=== PATIENT | male | born 1960 | race Caucasian/White ===

== ENCOUNTER 2019-11-06 10:43 | Day surgery (SDC) | payer BC ==
[~2019-11-06] VITALS: Ht 177.8 cm; Wt 76.6 kg
[~2019-11-06 10:43] MED LIST: Cipro500 MG PO; Flagyl500 MG PO; Flonase 0.05% N16 GM; HYDR1TAB94 PO; LORA1 PO; LOSARTAN-HCTZ1 EACH PO; ONDA4ODT MM; PERCOCET 10-321 EACH PO; Percocet 5-3251 EACH PO; Promethazine12.5 M1 PO; TRAZ100 PO
== END 2019-11-06 13:25 | disposition home or self-care (01) ==
LOC: ORSCSDS 10:43
PROVIDERS: Student in an Organized Health Care Education/Training Program
PROC: 0DBP8ZX Excision of Rectum, Via Natural or Artificial Opening Endoscopic, Diagnostic (ICD-10-PCS; principal; 2019-11-06 12:30)
PROC: 0DBN8ZX Excision of Sigmoid Colon, Via Natural or Artificial Opening Endoscopic, Diagnostic (ICD-10-PCS; principal; 2019-11-06 12:30)
PROC: 0DBK8ZX Excision of Ascending Colon, Via Natural or Artificial Opening Endoscopic, Diagnostic (ICD-10-PCS; principal; 2019-11-06 12:30)
DX: Z87.19 Personal history of other diseases of the digestive system (principal); R10.9 Unspecified abdominal pain; D12.4 Benign neoplasm of descending colon; D12.2 Benign neoplasm of ascending colon; D12.5 Benign neoplasm of sigmoid colon; K62.1 Rectal polyp; K64.8 Other hemorrhoids; K57.30 Diverticulosis of large intestine without perforation or abscess without bleeding; I10 Essential (primary) hypertension; Z79.899 Other long term (current) drug therapy; F17.210 Nicotine dependence, cigarettes, uncomplicated
CPT/HCPCS: 88305; J2704; J7120

== ENCOUNTER 2025-02-19 15:44 | Inpatient (IN) | payer SELFPAY ==
[~2025-02-19] VITALS: Ht 177.8 cm; Wt 67.7 kg
[2025-02-19] MEDS ORDERED: Ketorolac Tromethamine 30mg Vial IV ONE (16:10)
[2025-02-19] MEDS ORDERED: Ondansetron HCl 2 MG / ML 2ML Vial IV ONE (16:10)
[2025-02-19] MEDS ORDERED: NS 1,000 ML IV SCH ×2 (16:10→19:15)
[2025-02-19 16:31] LABS: Hematocrit 47.2 % (37.0-53.0); Hemoglobin 17.3 g/dL (13.5-17.5); Mean Corpuscular HGB 30.2 pg (26.0-34.0); Mean Corpuscular HGB Conc 36.7 g/dL (31.5-36.5); Mean Corpuscular Volume 82 fL (80-100); Mean Platelet Volume 10.9 fL (9.1-12.4); Platelet Count 118 K/mm3 (150-400); RDW Coefficient Variation 12.5 % (11.7-14.2); RDW Standard Deviation 37.5 fL (35.1-46.3); Red Blood Cell Count 5.73 M/mm3 (4.30-5.90); White Blood Cell Count 9.75 K/mm3 (4.00-11.30)
[2025-02-19 16:52] LABS: BAND PERCENT MAN 6 % (0-8); BASOPHILS PERCENT MAN 0 % (0-2); EOSINOPHILS PERCENT MAN 0 % (0-6); LYMPHOCYTES ABSOLUTE MAN 0.29 K/mm3 (0.84-5.20); LYMPHOCYTES PERCENT MAN 3 % (21-46); MONOCYTES ABSOLUTE MAN 0.78 K/mm3 (0.16-1.47); MONOCYTES PERCENT MAN 8 % (4-13); NEUTROPHILS ABSOLUTE MAN 8.67 K/mm3 (1.96-9.15); SEG NEUTROPHILS PERCENT MAN 83 % (41-73); TOTAL CELLS COUNTED 100
[2025-02-19 17:05] LABS: Albumin, Blood 3.8 g/dL (3.4-5.0); Bilirubin, Total 1.7 mg/dL (0.1-1.0); Calcium, Blood 8.9 mg/dL (8.5-10.1); Magnesium, Blood 1.9 mg/dL (1.6-2.4); Total Protein, Blood 7.8 g/dL (6.4-8.2)
[2025-02-19 17:06] LABS: Influenza A, PCR NEGATIVE (NEGATIVE); Influenza B, PCR NEGATIVE (NEGATIVE); Resp Syncytial Virus, PCR NEGATIVE (NEGATIVE); SARS-Cov-2 (COVID-19) PCR, MMC NEGATIVE (NEGATIVE)
[2025-02-19 17:32] LABS: Source, Urine Clean Catch
[2025-02-19 17:40] LABS: Appearance, Urine Cloudy (Clear); Bilirubin, Urine Neg (Neg); Blood, Urine 5+ (Neg); Color, Urine Yellow (P-Yellow); Glucose Qualitative, Urine Neg (Neg); Ketones, Urine 3+ (Neg); Leukocyte Esterase, Urine 3+ (Neg); Nitrite, Urine Pos (Neg); Protein, Urine 3+ (Neg); Specific Gravity, Urine 1.015 (1.003-1.022); Urobilinogen, Urine NORM (Normal)
[2025-02-19 17:47] LABS: Bacteria Many /hpf; Hyaline Casts 0-2 /lpf (0-2); Squamous Epithelial Cells Not Seen /hpf (Few); White Blood Cells, Urine 50-100 /hpf (0-5)
[2025-02-19] MEDS ORDERED: CefTRIAXone Sodium 1,000 MG in NS 50 ML IV ONE (19:15)
[2025-02-19] MEDS ORDERED: Morphine Sulfate 4 MG/1 ML Injection IV ONE (19:20)
[2025-02-19] MEDS ORDERED: Potassium Chloride 20 MEQ/15 ML UDC PO ONE (19:30)
[2025-02-19] MEDS ORDERED: Potassium Chloride 20 MEQ TabCR PO ONE (19:30)
[2025-02-19] MEDS ORDERED: Acetaminophen 500 MG Tab PO PRN ×2 (19:55→20:40)
[2025-02-19] MEDS ORDERED: FLU VACC TS2024-25(6MOS UP)/PF 45 MCG/0.5 ML SYRINGE IM ONE (20:00)
[2025-02-19] MEDS ORDERED: Ondansetron HCl 2 MG / ML 2ML Vial IV PRN (20:00)
[2025-02-19] MEDS ORDERED: OxyCODONE 5 mg/Acetamin 325 mg TABLET PO PRN (20:00)
[2025-02-19] MEDS ORDERED: Lactated Ringer's 1,000 ML IV SCH (20:00)
[2025-02-19] MEDS ORDERED: Acetaminophen 500 MG Tab PO ONE (21:00)
[2025-02-19] MEDS ORDERED: Lisinopril 10 MG Tab PO ONE (21:00)
[2025-02-19] MEDS ORDERED: Sennosides 8.6 MG Tab PO SCH (21:00)
[2025-02-19] MEDS ORDERED: Labetalol HCL 5 MG/ML 4ML Injection (Single Dose) IV PRN (21:20)
[2025-02-19 22:04] VITALS: BP 115/83
[2025-02-19 23:11] VITALS: BP 105/68
[2025-02-20 00:09] VITALS: BP 97/74
[2025-02-20 04:50] VITALS: BP 103/73
--- NOTE | 2025-02-20 05:36 | NUR ---
SHIFT SUMMARY NOC PT A/O X 4. PLEASANT AND COOPERATIVE WITH CARE. ADMIT FROM ED WITH PYELONEPHRITIS OF L KIDNEY. IN ED PT BP/HR ELEVATED AND TEMP 103.0F. PT MEDICATED WITH LISONOPRIL AND TYELONOL IN ED AND BP/HR/TEMP WNL UPON ADMIT TO UNIT. PT L FLANK PAIN MANAGED PER EMAR. PT ON TELE SINUS RHYTHM IN 90'S. LR INFUSING @ 100 ML/HR. POTASSIUM REPLACEMENT GIVEN IN ED. PT ABLE TO AMBULATE WITH SBA. PT CURRENTLY RESTING WITH BED IN LOWEST POSITION, AND CALL LIGHT WITHIN REACH.
[2025-02-20 05:48] LABS: Hemoglobin 13.9 g/dL (13.5-17.5); Mean Corpuscular HGB 29.8 pg (26.0-34.0); Mean Corpuscular HGB Conc 35.6 g/dL (31.5-36.5); Mean Corpuscular Volume 84 fL (80-100); Mean Platelet Volume 11.1 fL (9.1-12.4); Platelet Count 94 K/mm3 (150-400); RDW Coefficient Variation 12.7 % (11.7-14.2); RDW Standard Deviation 38.7 fL (35.1-46.3); Red Blood Cell Count 4.67 M/mm3 (4.30-5.90); White Blood Cell Count 15.28 K/mm3 (4.00-11.30)
[2025-02-20 06:09] LABS: Bun/Creatinine Ratio 21.6 (12.0-20.0); Calcium, Blood 8.1 mg/dL (8.5-10.1); Creatinine, Blood 1.16 mg/dL (0.60-1.20)
[2025-02-20 08:01] VITALS: BP 108/73
[2025-02-20] MEDS ORDERED: Polyethylene Glycol 3350 17 gm PO PRN (08:10)
[2025-02-20] MEDS ORDERED: Lactobacil 2-S.Thermo-Bifido 1 1 Cap PO SCH (09:00)
[2025-02-20] MEDS ORDERED: Enoxaparin 40 MG/0.4 ML SYR SC SCH (09:00)
[2025-02-20] MEDS ORDERED: Docusate Sodium 100 MG Cap PO SCH (09:00)
[2025-02-20 11:41] VITALS: BP 129/81
[2025-02-20 15:15] VITALS: BP 151/81
--- NOTE | 2025-02-20 16:34 | NUR ---
SHIFT SUMMARY PT RESTING QUIETLY AT START OF SHIFT; WOKE EASILY FOR SHIFT REPORT. PT ADMITTED FOR PYELONEPHRITIS/UTI. PT RECEIVING IVF'S AND IV ABX. PT IS A&O, UP INDEPENDENTLY IN AND TO [facility]. LAB CALLED TO REPORT +BCX. PHARMACY NOTIFIED TO VERIFY ABX COVERAGE. DR HAMMOND IN TO SEE PT AND DISCUSS PLAN OF CARE. DR HAMMOND UPDATED ON LAB REPORT. PT TO REMAIN ANOTHER NIGHT FOR IV ABX AND CLARIFICATION ON BCX'S. IVF'S MAY BE STOPPED, PT IS DRINKING AND VOIDING WELL. URINE IS CL YELLOW. PT RESTING QUIELTY AT THIS TIME. CALL LT IN REACH. ABLE TO MAKE NEEDS KNOWN.
[2025-02-20] MEDS ORDERED: CefTRIAXone Sodium 1,000 MG in NS 100 ML IV SCH (20:00)
[2025-02-20 20:15] VITALS: BP 130/82
[2025-02-20] MEDS ORDERED: Docusate Sodium/Senna 1 Tab PO SCH (21:00)
[2025-02-21 00:44] VITALS: BP 142/82
--- NOTE | 2025-02-21 04:01 | NUR ---
SHIFT SUMMARY A&0X4 WITH PLEASANT AFFECT. RECEIVED IV ROCEPHIN PER ORDER W/ NO S/SX ANY ADVERSE REACTIONS. REPORTED THAT PAIN MED GIVEN PREVIOUS SHIFT EFFECTIVE FOR FLANK PAIN BY DECREASING PAIN TO 3/10. HAS NOT REQUESTED ANY FURTHER PAIN MED OF YET THIS SHIFT. VSS. PO FLUID INTAKE ADEQUATE. URINE CLEAR YELLOW &NO LONGER HAZY, DENIES ANY FURTHER DYSURIA. NO FURTHER C/O NAUSEA, APPETITE FAIR,HS SNACK GIVEN.
[2025-02-21 04:43] VITALS: BP 151/90
[2025-02-21 06:11] LABS: Hematocrit 37.3 % (37.0-53.0); Hemoglobin 13.3 g/dL (13.5-17.5); Mean Corpuscular HGB 30.2 pg (26.0-34.0); Mean Corpuscular HGB Conc 35.7 g/dL (31.5-36.5); Mean Corpuscular Volume 85 fL (80-100); Mean Platelet Volume 11.3 fL (9.1-12.4); Platelet Count 104 K/mm3 (150-400); RDW Coefficient Variation 12.7 % (11.7-14.2); RDW Standard Deviation 39.6 fL (35.1-46.3); White Blood Cell Count 12.74 K/mm3 (4.00-11.30)
[2025-02-21 06:29] LABS: Albumin, Blood 2.6 g/dL (3.4-5.0); Anion Gap 9 mmol/L (3-11); Blood Urea Nitrogen 21 mg/dL (8-24); Bun/Creatinine Ratio 21.1 (12.0-20.0); CO2, Blood 26 mmol/L (21-32); Chloride, Blood 106 mmol/L (98-108); Glomerular Filtration Rate 85 (60-); Glucose, Blood 111 mg/dL (70-99); Magnesium, Blood 2.1 mg/dL (1.6-2.4); Phosphorus, Blood 2.6 mg/dL (2.5-4.9); Potassium, Blood 3.5 mmol/L (3.5-5.5); Sodium, Blood 137 mmol/L (136-145)
[2025-02-21 07:17] VITALS: BP 134/88
[2025-02-21 11:43] VITALS: BP 155/95
[2025-02-21] MEDS ORDERED: Melatonin 3 MG Tab PO PRN (12:30)
[2025-02-21 16:14] VITALS: BP 155/96
--- NOTE | 2025-02-21 18:03 | NUR ---
SHIFT SUMMARY PT AOX4, COOPERATIVE, ABLE TO MAKE NEEDS KNOWN. PT IS IND IN ROOM. COMPLAINED OF PAIN ONCE DURING SHIFT, MEDICATE PER EMAR. AWAITING CULTURES. BED IN LOWEST POSITION, CALL LIGHT WITHIN REACH.
[2025-02-21 20:00] VITALS: BP 170/97
[2025-02-21] MEDS ORDERED: NS 250 ML IV PRN (21:40)
[2025-02-22] VITALS (9 sets, daily range): BP systolic 163–194; BP diastolic 91–104
--- NOTE | 2025-02-22 04:00 | NUR ---
SHIFT SUMMARY PT ALERT ORIENTED X 4 ABLE TO VERBALIZE NEEDS GETS UP AD NANCI IN HIS ROOM REMAINS ON ROCEPHIN ORDERED FOR UTI. HIS URINE CULTURE CAME BACK SHOWING ECOLI. HIS BP IS ELEVATED BUT HIS LABETOLOL DONT START TILL OVER 180 AND HES 170-171. C/O LT FLANK PAIN MEDICATED WITH PERCOCET WITH GOOD PAIN RELIEF. REMAINS ON TELEMETRY AT [facility] AT 90. C/O HAVING A HARD TIME SLEEPING MEDICATED WITH MELATONIN WITH GOOD RESULTS. HE SLEPT OFF AND ON ALL NIGHT. C/O NAUSEA MEDICATED WITH ZOFRAN WITH NO FURTHER NAUSEA. RESTING IN BED AT THIS TIME WITH CALL LIGHT IN REACH
--- NOTE | 2025-02-22 09:17 | NUR ---
INFORMED MD ABOUT HYPERTENSION.
[2025-02-22] MEDS ORDERED: AmLODIPine Besylate 5 MG Tab PO SCH (11:00)
--- NOTE | 2025-02-22 17:58 | NUR ---
SHIFT SUMMARY PT AOX4, COOPERATIVE, ABLE TO MAKE NEEDS KNOWN. IND IN ROOM, ON . ONE COMPLAINT OF PAIN FOR SHIFT, A HEAD ACHE, MEDICATED PER EMAR. POSSIBLE DC ON SUNDAY. THIS EVENING, PT BP ELEVATED, MEDICATED PRE EMAR, RETOOK BP 30 MINS LATER, BP DECREASED APPROPRIATELY. WILL INFORM NEXT SHIFT. BED IN LOWEST POSITION, CALL LIGHT WITHIN REACH.
[2025-02-23 02:31] VITALS: BP 171/89
[2025-02-23 06:15] LABS: Hematocrit 39.5 % (37.0-53.0); Hemoglobin 14.6 g/dL (13.5-17.5); Mean Corpuscular HGB 30.5 pg (26.0-34.0); Mean Corpuscular Volume 83 fL (80-100); Mean Platelet Volume 11.3 fL (9.1-12.4); Platelet Count 153 K/mm3 (150-400); RDW Coefficient Variation 12.2 % (11.7-14.2); RDW Standard Deviation 37.2 fL (35.1-46.3); Red Blood Cell Count 4.78 M/mm3 (4.30-5.90); White Blood Cell Count 9.35 K/mm3 (4.00-11.30)
[2025-02-23 06:46] LABS: Magnesium, Blood 2.2 mg/dL (1.6-2.4)
--- NOTE | 2025-02-23 06:46 | NUR ---
SHIFT SUMMARY PT ALERT AND ORIENTED TIMES 4. PT ADMITTED FOR PYELONEPHRITUS WITH UTI . PT ON TELE READING SINUS RHYTHM 80 S. PT IS INDEPENDENT AND ABLE TO AMBULATE AROUND ROOM AND TO BATHROOM. PT IS RECEPTIVE TO CARE. CALL LIGHT WITHIN REACH, RAILS TIMES 2, BED IN LOW POSITION.
[2025-02-23 06:47] LABS: Albumin, Blood 3.1 g/dL (3.4-5.0); Anion Gap 8 mmol/L (3-11); Blood Urea Nitrogen 16 mg/dL (8-24); Bun/Creatinine Ratio 20.2 (12.0-20.0); CO2, Blood 28 mmol/L (21-32); Calcium, Blood 8.1 mg/dL (8.5-10.1); Chloride, Blood 104 mmol/L (98-108); Creatinine, Blood 0.79 mg/dL (0.60-1.20); Glomerular Filtration Rate 100 (60-); Glucose, Blood 118 mg/dL (70-99); Phosphorus, Blood 3.9 mg/dL (2.5-4.9); Potassium, Blood 3.3 mmol/L (3.5-5.5); Sodium, Blood 137 mmol/L (136-145)
[2025-02-23] MEDS ORDERED: Potassium Chloride 20 MEQ TabCR PO ONE (08:10)
[2025-02-23 15:14] VITALS: BP 175/91
--- NOTE | 2025-02-23 18:38 | NUR ---
NO ACUTE CHANGES THIS SHIFT. TYLENOL GIVE X2 TODAY FOR NECK/HEADACHE. PATIENT A/OX4 AND INDEPENDENT IN ROOM. VS, ON RA. CALLS APPROPRIATELY FOR ASSISTANCE. PLAN IS FOR DC TOMORROW. ROCEPHIN GIVEN AT 2100.
[2025-02-23 19:46] VITALS: BP 195/92
[2025-02-23] MEDS ORDERED: CefTRIAXone Sodium 1,000 MG in NS 100 ML IV SCH (21:00)
[2025-02-23 21:15] VITALS: BP 178/86
[2025-02-23 22:00] VITALS: BP 172/84
[2025-02-24 04:15] VITALS: BP 161/89
--- NOTE | 2025-02-24 04:27 | NUR ---
SHIFT SUMMARY A&OX4. BP ELEVATED AT ONSET OF SHIFT AT 195/92. PRN LABETOLOL GIVEN IV PER PRN ORDER (SEE MAR) AND BP CAME DOWN TO 178/86 SOON AFTER FOLLOWED BY 172/84 AFTER ANOTHER 45 MINUTES. PT WAS ASYMPTOMATIC DURING HIGH BP (DENIED ANY H/A,CP,PALPITTAIONS,DIZZINESS OR OTHER SX) STATES HE THINKS HIS HIGH BP IS R/T ANXIETY ABOUT 'S RECENT SURGERY. REPORTS HIS URINARY SYMPTOMS ARE ALL RESOLVED. PO FLUID INTAKE ADEQUATE. AFEBRILE.
[2025-02-24 05:51] LABS: Hematocrit 39.9 % (37.0-53.0); Hemoglobin 14.6 g/dL (13.5-17.5); Mean Corpuscular HGB 30.4 pg (26.0-34.0); Mean Corpuscular HGB Conc 36.6 g/dL (31.5-36.5); Mean Corpuscular Volume 83 fL (80-100); Mean Platelet Volume 10.7 fL (9.1-12.4); Platelet Count 196 K/mm3 (150-400); RDW Coefficient Variation 12.2 % (11.7-14.2); RDW Standard Deviation 37.2 fL (35.1-46.3); Red Blood Cell Count 4.81 M/mm3 (4.30-5.90); White Blood Cell Count 11.45 K/mm3 (4.00-11.30)
[2025-02-24 06:11] LABS: Albumin, Blood 3.1 g/dL (3.4-5.0); Anion Gap 9 mmol/L (3-11); Blood Urea Nitrogen 17 mg/dL (8-24); Bun/Creatinine Ratio 19.6 (12.0-20.0); CO2, Blood 28 mmol/L (21-32); Calcium, Blood 8.3 mg/dL (8.5-10.1); Chloride, Blood 104 mmol/L (98-108); Creatinine, Blood 0.87 mg/dL (0.60-1.20); Glomerular Filtration Rate 98 (60-); Glucose, Blood 122 mg/dL (70-99); Magnesium, Blood 2.3 mg/dL (1.6-2.4); Phosphorus, Blood 3.7 mg/dL (2.5-4.9); Potassium, Blood 3.7 mmol/L (3.5-5.5); Sodium, Blood 137 mmol/L (136-145)
[2025-02-24 07:35] VITALS: BP 157/91
[2025-02-24] MEDS ORDERED: ACET500 PO (11:45)
[2025-02-24] MEDS ORDERED: MELATIN3 MG PO (11:46)
[2025-02-24] MEDS ORDERED: NORVASC10 MG PO (11:46)
[2025-02-24] MEDS ORDERED: VISBIOME 112.51 EACH PO (11:47)
[2025-02-24] MEDS ORDERED: CIPR500 PO (11:47)
[2025-02-24] MEDS ORDERED: MIRALAX17 GM PO (11:47)
--- NOTE | 2025-02-24 12:05 | NUR ---
PATIENT D/C'D TO HOME. RX MEDICATIONS FAXED TO [facility]. DC INSTRUCTIONS AND EDUCATION DISCUSSED WITH PATIENT AND COPY PROVIDED. PATIENT DENIES ANY FURTHER QUESTIONS OR CONCERNS.
== END 2025-02-24 12:18 | disposition home or self-care (01) | DRG 872 ==
LOC: ER 15:44 → MEDS 19:52 → ERHOLD 19:52 → MEDS 22:10 → ENPENDDIS 02-24 11:06 → MEDS 02-24 12:18
PROVIDERS: Internal Medicine; Nurse Practitioner Acute Care; Student in an Organized Health Care Education/Training Program; ADMIT Student in an Organized Health Care Education/Training Program
DX: A41.51 Sepsis due to Escherichia coli [E. coli] (principal); N10 Acute pyelonephritis; E87.1 Hypo-osmolality and hyponatremia; I10 Essential (primary) hypertension; E87.6 Hypokalemia; N30.90 Cystitis, unspecified without hematuria; Z79.899 Other long term (current) drug therapy; Z87.891 Personal history of nicotine dependence; Z87.19 Personal history of other diseases of the digestive system
CPT/HCPCS: 0241U; 36415; 74177; 80048; 80053; 80069; 81001; 83605; 83690; 83735; 85025; 85027; 87040; 87077; 87086; 87186; 96361; 96365-59; 96366; 96372; 96375; 96376; 99285-25; A9270; G0378; J0696; J1650; J1885; J2270; J2405; J7030; J7050; J7120; Q9967